=== PATIENT | male | born 1985 | race Caucasian/White ===

== ENCOUNTER → 2017-01-12 | Outpatient (REF) | payer OTHER | LOC: M SFHCLERA 10:32 | PROVIDERS: ATTEND Family Medicine | DX: R82.99 Other abnormal findings in urine (principal); Z20.7 Contact with and (suspected) exposure to pediculosis, acariasis and other infestations ==

== ENCOUNTER → 2017-01-12 | Outpatient (CLI) | payer OTHER ==
--- NOTE | 2017-01-12 11:34 | REP ---
Clinical: Pain. Technique: Neutral and frog lateral views of the left hip. Findings: No acute fracture dislocation. Skeletal structures, joint spaces, and surrounding soft tissues are normal. No significant degenerative changes are appreciated. Impression: Normal, age-appropriate left hip radiographs. Signed by Saran Eng MD 01/12/2017 11:25 A
== END ==
LOC: M LRY 10:42
PROVIDERS: ATTEND Family Medicine
DX: M25.552 Pain in left hip (principal)

== ENCOUNTER → 2017-02-01 | Outpatient (CLI) | payer OTHER ==
--- NOTE | 2017-02-01 09:35 | REP ---
MRI left hip without contrast: History: Left hip pain. Comparison radiographs January 12, 2017. Technique: Axial, coronal, and sagittal imaging planes utilized. T1 and T2-weighted scans were obtained with and without fat saturation. MRI findings: Cortical and medullary bone signal intensity are normal in the proximal femurs and in the visualized bony pelvic ring bilaterally. There is no evidence to suggest avascular necrosis. Head/neck junction morphology is unremarkable. There is no visible labral cartilage tear or joint effusion. There is a small quantity of peritrochanteric fluid on the right but no bursal fluid collection is visible on the left on T2-weighted scans. Tendon insertions appear unremarkable. No loose body is seen. Ligamentum teres is intact. Impression: Unremarkable MRI study of the left hip. Signed by Jose Antonio Hubbard MD 02/01/2017 03:02 P
== END ==
LOC: M RAD 07:28
PROVIDERS: ATTEND Family Medicine
DX: M25.552 Pain in left hip (principal)